=== PATIENT | male | born 1970 | race Hispanic/Latino ===

== ENCOUNTER 2023-09-02 19:38 | Emergency (ER) | payer BC ==
[~2023-09-02] VITALS: Ht 167.6 cm; Wt 86.2 kg
[2023-09-02 20:06] LABS: BASOPHILS # (AUTO) 0.04 K/uL (0.00-0.20); BASOPHILS % (AUTO) 0.5 % (0.0-5.0); EOSINOPHILS # (AUTO) 0.27 K/uL (0.00-0.70); EOSINOPHILS % (AUTO) 3.5 % (0.0-8.0); HEMATOCRIT 44.7 % (42-54); IMMATURE GRANULOCYTE ABSOLUTE 0.03 K/uL (0-1); LYMPHOCYTES % (AUTO) 38.7 % (21.0-51.0); MEAN CORPUSCULAR HEMOGLOBIN 31.8 pg (27.0-33.0); MEAN CORPUSCULAR HGB CONC 34.7 g/dL (32.0-36.0); MEAN CORPUSCULAR VOLUME 91.6 fL (79-99); MONOCYTES # (AUTO) 0.6 K/uL (0.1-1.0); MONOCYTES % (AUTO) 7.6 % (3.0-13.0); NEUTROPHILS # (AUTO) 3.8 K/uL (1.8-7.7); NEUTROPHILS % (AUTO) 49.3 % (40.0-77.0); PLATELET COUNT (AUTO) 163 K/uL (130-400); RED BLOOD CELL COUNT(AUTO) 4.88 MIL/uL (4.50-6.20); RED CELL DISTRIBUTION WIDTH 13.1 % (11.0-15.5); WHITE BLOOD COUNT (AUTO) 7.6 K/uL (4.8-10.8)
[2023-09-02 20:15] LABS: CREATININE 0.9 mg/dL (0.5-1.3); POTASSIUM 3.6 mmol/L (3.5-5.1)
[2023-09-02 20:20] LABS: BILIRUBIN,TOTAL 0.6 mg/dL (0.2-1.0); TOTAL PROTEIN, SERUM 7.7 g/dL (6.0-8.3)
[2023-09-02 21:24] LABS: APPEARANCE,URINE CLEAR (CLEAR); BILIRUBIN,URINE NEGATIVE (NEGATIVE); COLOR,URINE LIGHT-YELLOW (YELLOW); GLUCOSE, URINE (UA) NEGATIVE (NEGATIVE); KETONES,URINE NEGATIVE (NEGATIVE); LEUKOCYTE ESTERASE ,URINE NEGATIVE Leu/uL (NEGATIVE); NITRATE,URINE NEGATIVE (NEGATIVE); OCCULT BLOOD,URINE NEGATIVE (NEGATIVE); PROTEIN,URINE NEGATIVE (NEGATIVE); UROBILINOGEN,URINE 0.2 mg/dL (0.2-1.0)
[2023-09-02 21:26] LABS: MUCUS,URINE RARE LPF (None Seen)
[2023-09-02 21:31] VITALS: BP 111/68; PULSE 74; RESP 18; O2SAT 96
== END 2023-09-02 21:57 | disposition home or self-care (01) ==
LOC: EDH 19:38
DX: R07.89 Other chest pain (principal); I10 Essential (primary) hypertension
CPT/HCPCS: 36415; 71045; 80053; 81001; 84484; 85025; 93005